=== PATIENT | female | born 1975 | race African-American/Black ===

== ENCOUNTER 2018-01-30 09:32 | Emergency (ER) | payer OTHER ==
[~2018-01-30] VITALS: Ht 170.2 cm; Wt 113.4 kg
[~2018-01-30 09:32] MED LIST: BENADRYL25 MG PO; CIPROFLOXACIN500 M2 ORAL; CYCLOBENZAPRINE10 MG ORAL; FLOMAX0.4 MG ORAL; NKM; NORCO 5-325 TA1 EACH ORAL; PREDNISONE20 MG ORAL; ZANTAC150 MG ORAL
[2018-01-30 09:50] VITALS: BP 122/85
--- NOTE | 2018-01-30 10:26 | Emergency Room Report ---
History of Present Illness General Chief Complaint: Back Pain-No Injury Source: Patient Present Illness HPI Patient is a 42-year-old female brought in by self after increased back pain. Patient reports having back pain for approximately one week. Patient reports having sharp pain to her low back. This did not radiate. Patient denies any recent trauma or heavy lifting. She denied bowel or bladder dysfunction. She denies being . Patient states that she had been having pain which radiated to her tailbone. She denies any weight loss or fevers. Patient had not been vomiting. She denies any recent change in the pain. She reports as having somewhat improved standing or lying down.The pain is sharp in nature.The pain did not radiate. Allergies: Coded Allergies: ASPIRIN (Verified Allergy, Severe, Hallucinations, 01/06/13) NSAIDS (NON-STEROIDAL ANTI-INFLAMMA (Verified Allergy, Intermediate, Hives , 01/06/13) Shrimp (Verified Allergy, Intermediate, Hives, 01/06/13) TRAMADOL (Verified Allergy, Unknown, 01/30/18) Patient History Last Menstrual Period: 01/18/18 Now: No : 3 Para: 1 Reviewed Nursing Documentation: PMH: Agreed; PSxH: Agreed Nursing Documentation-PMH Past Medical History: No Stated History Review of Systems All Other Systems: negative except mentioned in HPI Physical Exam Vital Signs Date Time Temp Pulse Resp B/P (MAP) Pulse Ox O2 Delivery O2 Flow Rate FiO2 01/30/18 09:41 98.3 95 20 122/85 98 Room Air 98.2 General Appearance: well appearing, no apparent distress, obese Head: normocephalic, atraumatic ENT: hearing grossly normal, normal voice Neck: full range of motion, supple Respiratory: no respiratory distress, speaking full sentences Cardiovascular #1: normal peripheral pulses, no edema, no JVD Gastrointestinal: normal inspection, soft Musculoskeletal: normal inspection, back normal, no calf tenderness, decreased range of mation Neurologic: alert, oriented x3, responsive, normal gait Psychiatric: mood/affect normal Skin: no rash Medical Decision Making Diagnostic Impression: Primary Impression: Low back pain ER Course This presented for back pain. Differential diagnosis included but was not limited to herniated disc, cauda equina syndrome, abdominal aortic aneurysm, perforated ulcer, spinal epidural abscess, spinal stenosis, lumbar fracture, metastatic lesion, pyelonephritis. Patient has a benign exam and does not appear to require any further imaging or laboratory testing at this time. Was given lidocaine patch as well as Tylenol. The patient is advised to follow up with primary care doctor in 1-2 days. Patient is advised that she may need MRI of pain persists. Patient is advised to return if any worsening condition or if any changes in status that are concerning. This report is dictated with [employer] dairy supplies sales representative software which may occasionally lead to discrepancies related to use of this software. Labs Test 01/30/18 10:05 Urine Color Yellow Urine Appearance Slightly cloudy Urine pH 6 (4.5-8.0) Urine Specific [place] 1.020 (1.005-1.035) Urine Protein Negative (NEGATIVE) Urine Glucose (UA) Negative (NEGATIVE) Urine Ketones Negative (NEGATIVE) Urine Occult Blood 1+ (NEGATIVE) Urine Nitrite Negative (NEGATIVE) Urine Bilirubin Negative (NEGATIVE) Urine Ictotest Negative Urine Urobilinogen 1 MG/DL (0.0-1.0) Urine Leukocyte Esterase Negative (NEGATIVE) Urine RBC 0-2 /HPF (0 - 2) Urine WBC 0-2 /HPF (0 - 2) Urine Squamous Epithelial Cells None /LPF (NONE/OCC) Urine Bacteria None /HPF (NONE) Urine HCG, Qualitative Negative (NEGATIVE) Last Vital Signs Date Time Temp Pulse Resp B/P (MAP) Pulse Ox O2 Delivery O2 Flow Rate FiO2 01/30/18 09:41 98.3 95 20 122/85 98 Room Air 98.2 Status: improved Scripts Acetaminophen* (ACETAMINOPHEN EXTRA STRENGTH*) 500 Mg Tablet 500 MG ORAL Q8H PRN for Fever/Headache/Mild Pain, #30 TAB Prov: Colton Messina MD 01/30/18 Lidocaine (Lidocaine) 1 Each Adh..patch 700 MG TP DAILY, #30 PATCH Prov: Colton Messina MD 01/30/18 Referrals: MUKESH MULLIGANREFERNNAMDI (PCP) Colton Messina MD Jan 30, 2018 10:26
[2018-01-30 10:27] LABS: APPEARANCE,URINE SLIGHTLY CLOUDY; BILIRUBIN, URINE NEGATIVE (NEGATIVE); GLUCOSE, URINE (UA) NEGATIVE (NEGATIVE); KETONES,URINE NEGATIVE (NEGATIVE); LEUKOCYTE ESTERASE ,URINE NEGATIVE (NEGATIVE); NITRITE,URINE NEGATIVE (NEGATIVE); PH,URINE 6 (4.5-8.0); PROTEIN,URINE NEGATIVE (NEGATIVE); UROBILINOGEN,URINE 1 MG/DL (0.0-1.0)
[2018-01-30] MEDS ORDERED: LIDOCAINE700 M1 TP (10:27)
[2018-01-30] MEDS ORDERED: ACETAMINOPHEN500 M3 ORAL (10:27)
[2018-01-30] MEDS ORDERED: Acetaminophen 500mg (ES) tab ORAL ONE (10:30)
[2018-01-30 10:43] LABS: COLOR,URINE YELLOW
[2018-01-30 10:50] VITALS: BP 122/85
== END 2018-01-30 10:50 | disposition home or self-care (01) ==
LOC: EMR 09:53
DX: M54.5 Low back pain (principal); Z88.6 Allergy status to analgesic agent; Z91.013 Allergy to seafood
CPT/HCPCS: 81003; 81025; 99284

== ENCOUNTER 2020-01-26 15:06 | Emergency (ER) | payer OTHER ==
[~2020-01-26] VITALS: Ht 170.2 cm; Wt 115.2 kg
[~2020-01-26 15:06] MED LIST changes: +ACETAMINOPHEN500 M3 ORAL; +LIDOCAINE700 M1 TP; +NITROFURANTOIN100 M2 ORAL
[2020-01-26 15:22] VITALS: BP 120/86
--- NOTE | 2020-01-26 15:40 | Emergency Room Report ---
History of Present Illness General Chief Complaint: Female Urogenital Problems Source: Patient Present Illness HPI 44-year-old female presents to the emergency department complaining of 8 out of 10 severity progressive right sided flank pain x1 day. Patient reports she was seen by her BIOCHEMISTRY TEACHER yesterday and was prescribed antibiotics. Patient reports she was on her way to fill prescription however pain is so intense that she came to the ER instead. Patient denies nausea, vomiting, fevers or chills. Patient denies blood in the urine or dysuria. Patient denies midline spinal pain. Patient reports history of stones in the past. She denies any other symptoms at this time. She denies or suspicion of . She reports she just received Depo Shot yesterday. Allergies: Coded Allergies: ASPIRIN (Verified Allergy, Severe, Hallucinations, 01/06/13) NSAIDS (NON-STEROIDAL ANTI-INFLAMMA (Verified Allergy, Intermediate, Hives , 01/06/13) Shrimp (Verified Allergy, Intermediate, Hives, 01/06/13) TRAMADOL (Verified Allergy, Unknown, 01/30/18) COVID-19 Screening Contact w/high risk pt: No Recent Travel to affected area: No Experienced COVID-19 symptoms?: No COVID-19 Testing performed OVEN ATTENDANT: No Patient History Past Medical History: see triage record Past Surgical History: none Pertinent Family History: none Last Menstrual Period: now Now: No Reviewed Nursing Documentation: PMH: Agreed; PSxH: Agreed Nursing Documentation-PMH Past Medical History: No History, Except For Review of Systems All Other Systems: negative except mentioned in HPI Physical Exam Vital Signs Date Time Temp Pulse Resp B/P (MAP) Pulse Ox O2 Delivery O2 Flow Rate FiO2 01/26/20 15:08 99.7 96 18 120/86 (97) 99 Room Air Sp02 EP Interpretation: reviewed, normal General Appearance: no apparent distress, alert, GCS 15, non-toxic Head: normocephalic, atraumatic Eyes: bilateral eye normal inspection, bilateral eye PERRL ENT: hearing grossly normal, normal voice Neck: full range of motion Respiratory: lungs clear, normal breath sounds, speaking full sentences Cardiovascular #1: regular rate, rhythm, no edema Gastrointestinal: normal bowel sounds, non tender, soft, non-distended, no guarding Rectal: deferred Genitourinary: normal inspection, no CVA tenderness Musculoskeletal: back normal, normal range of motion, gait/station normal, non- tender Neurologic: alert, motor strength/tone normal, oriented x3, sensory intact, responsive, speech normal Psychiatric: judgement/insight normal Medical Decision Making PA Attestation Dr. Messina is my supervising Physician whom patient management has been discussed with. Diagnostic Impression: Primary Impression: Urinary tract infection Qualified Codes: N30.01 - Acute cystitis with hematuria ER Course 44-year-old female presents to the emergency department complaining of 8 out of 10 severity progressive right sided flank pain x1 day. Patient reports she was seen by her BIOCHEMISTRY TEACHER yesterday and was prescribed antibiotics. Patient reports she was on her way to fill prescription however pain is so intense that she came to the ER instead. Patient denies nausea, vomiting, fevers or chills. Patient denies blood in the urine or dysuria. Patient denies midline spinal pain. Patient reports history of stones in the past. She denies any other symptoms at this time. She denies or suspicion of . She reports she just received Depo Shot yesterday. Ddx considered but are not limited to Diverticulitis, acute appy, diarrhea,UC, PUD, GE, pancreatitis, gallstone, kidney stone, pyelonephritis, UTI, obstruction. Vital signs: are WNL, pt. is afebrile H&PE are most consistent with Possible renal calculi w. UTI ORDERS: -CBC: Unremarkable - CMP: normal renal function - UA: Nitrite positive== UTI -Hcg: Negative - CT abdomen and pelvis no contrast: see results below ED INTERVENTIONS: -- 1000NS --4mg Morphine for pain -Benadryl 50mg PO -- D/w pt. CT results. D/w pt. will give dose of abx here. initially was going to switch to Macrobid. reviewed CT w. attending physician- some mild perinephritic stranding noted, decision was made to have pt. take antibiotic that was originally rx'd to her by her INSULATION BOARD CALENDER OPERATOR for [facility] as this abx is superior for suspected pyelonephritis. DISCHARGE: At this time pt. is stable for d/c to home. Will provide printed patient care instructions, and any necessary prescriptions. Care plan and follow up instructions have been discussed with the patient prior to discharge. Labs Test 01/26/20 15:15 01/26/20 15:30 Urine Color Pale yellow Urine Appearance Cloudy Urine pH 7 (4.5-8.0) Urine Specific [place] 1.010 (1.005-1.035) Urine Protein 1+ (NEGATIVE) Urine Glucose (UA) Negative (NEGATIVE) Urine Ketones Negative (NEGATIVE) Urine Blood 2+ (NEGATIVE) Urine Nitrite Positive (NEGATIVE) Urine Bilirubin Negative (NEGATIVE) Urine Urobilinogen Normal MG/DL (0.0-1.0) Urine Leukocyte Esterase 2+ (NEGATIVE) Urine HCG, Qualitative Negative (NEGATIVE) White Blood Count 9.4 K/UL (4.8-10.8) Red Blood Count 5.01 M/UL (4.20-5.40) Hemoglobin 11.8 G/DL (12.0-16.0) Hematocrit 39.0 % (37.0-47.0) Mean Corpuscular Volume 78 FL (80-99) Mean Corpuscular Hemoglobin 23.6 PG (27.0-31.0) Mean Corpuscular Hemoglobin Concent 30.4 G/DL (32.0-36.0) Red Cell Distribution Width 17.5 % (11.6-14.8) Platelet Count 344 K/UL (150-450) Mean Platelet Volume 5.5 FL (6.5-10.1) Neutrophils (%) (Auto) 65.2 % (45.0-75.0) Lymphocytes (%) (Auto) 27.6 % (20.0-45.0) Monocytes (%) (Auto) 3.5 % (1.0-10.0) Eosinophils (%) (Auto) 2.4 % (0.0-3.0) Basophils (%) (Auto) 1.3 % (0.0-2.0) Sodium Level 139 MMOL/L (136-145) Potassium Level 3.8 MMOL/L (3.5-5.1) Chloride Level 105 MMOL/L (98-107) Carbon Dioxide Level 24 MMOL/L (21-32) Anion Gap 10 mmol/L (5-15) Blood Urea Nitrogen 10 mg/dL (7-18) Creatinine 1.0 MG/DL (0.55-1.30) Estimat Glomerular Filtration Rate > 60 mL/min (>60) Glucose Level 88 MG/DL (74-106) Calcium Level 8.6 MG/DL (8.5-10.1) Total Bilirubin 0.6 MG/DL (0.2-1.0) Aspartate Amino Transf (AST/SGOT) 17 U/L (15-37) Alanine Aminotransferase (ALT/SGPT) 13 U/L (12-78) Alkaline Phosphatase 77 U/L (46-116) Total Protein 7.5 G/DL (6.4-8.2) Albumin 3.6 G/DL (3.4-5.0) Globulin 3.9 g/dL Albumin/Globulin Ratio 0.9 (1.0-2.7) Lipase 130 U/L (73-393) CT/MRI/US Diagnostic Results CT/MRI/US Diagnostic Results : Imaging Test Ordered: CT Abdomen and Pelvis Impression "IMPRESSION: TINY PUNCTATE RIGHT UPPER POLE INTRARENAL STONE. NO HYDRONEPHROSIS. MILD PERIURETERIC INDURATION AROUND THE PROXIMAL RIGHT URETER. QUESTION URINARY TRACT INFECTION OR RECENTLY PASSED STONE. SLIGHTLY BULKY UTERUS BUT UNCHANGED SINCE 2012. SMALL FATTY UMBILICAL HERNIA." Per official radiology report- Please see report for specific details. Last Vital Signs Date Time Temp Pulse Resp B/P (MAP) Pulse Ox O2 Delivery O2 Flow Rate FiO2 01/26/20 15:22 99.7 79 18 120/86 99 Room Air Disposition: HOME, SELF-CARE Condition: Stable Referrals: NON PHYSICIAN (PCP) Patient Instructions: Urinary Tract Infection Additional Instructions: Take your previously prescribed medications as directed. Follow up with your Primary Care Provider/ INSULATION BOARD CALENDER OPERATOR in 3-5 days, even if your symptoms have resolved. Return sooner to ED if new symptoms occur, or current symptoms become worse. - Please note that this Emergency Department Report was dictated using [employer] manager technology software, occasionally this can lead to erroneous entry secondary to interpretation by the dictation equipment. Soha Linn Jan 26, 2020 15:39
[2020-01-26] MEDS ORDERED: Morphine Sulfate 4mg/ml Inj (IV USE ONLY) IVP ONE (15:45)
--- NOTE | 2020-01-26 16:04 | Diagnostic Imaging Report ---
EXAM: CT CT Abdomen Pelvis WO Contrast INDICATION: Severe right flank pain. COMPARISON: None TECHNIQUE: Axial images were obtained through the abdomen pelvis without intravenous contrast. Sagittal and coronal reformats are generated. All CT scans at this facility are performed using dose modulation techniques as appropriate to a performed exam including the following: automated exposure control with adjustment of the mA and/or kV according to patient size. RADIATION DOSE: CTDIvol: 13.5 mGy DLP: 697.6 mGy-cm Dose information generated by the CT scanner is available in PACS. FINDINGS: The lung bases are clear. The liver and spleen are homogeneous. Gallbladder is without sludge or stone and there is no wall thickening. The pancreas is unremarkable. Adrenals are normal in morphology. Tiny punctate intrarenal stone noted upper pole right kidney. No hydronephrosis demonstrated but there is slight induration noted around the proximal right ureter. Question whether this may be secondary inflammation from urinary tract infection or recently passed stone.. Small bowel loops are nondistended. The colon is also nondistended with average amount of stool. The appendix is normal. There is a somewhat bulky uterus but this is unchanged compared to prior exam from 2013. There is no free fluid or free air. No pathologic adenopathy demonstrated. Urinary bladder appears unremarkable. There is a small fatty umbilical hernia. Mild degenerative changes of the spine noted. IMPRESSION: TINY PUNCTATE RIGHT UPPER POLE INTRARENAL STONE. NO HYDRONEPHROSIS. MILD PERIURETERIC INDURATION AROUND THE PROXIMAL RIGHT URETER. QUESTION URINARY TRACT INFECTION OR RECENTLY PASSED STONE. SLIGHTLY BULKY UTERUS BUT UNCHANGED SINCE 2013. SMALL FATTY UMBILICAL HERNIA.
[2020-01-26 16:18] LABS: APPEARANCE,URINE CLOUDY; BILIRUBIN, URINE NEGATIVE (NEGATIVE); COLOR,URINE PALE YELLOW; GLUCOSE, URINE (UA) NEGATIVE (NEGATIVE); KETONES,URINE NEGATIVE (NEGATIVE); LEUKOCYTE ESTERASE ,URINE 2+ (NEGATIVE); NITRITE,URINE POSITIVE (NEGATIVE); PH,URINE 7 (4.5-8.0); PROTEIN,URINE 1+ (NEGATIVE); UROBILINOGEN,URINE NORMAL MG/DL (0.0-1.0)
[2020-01-26 16:23] LABS: ANION GAP 10 mmol/L (5-15); BASOPHILS % (AUTO) 1.3 % (0.0-2.0); BLOOD UREA NITROGEN 10 mg/dL (7-18); CALCIUM 8.6 MG/DL (8.5-10.1); CARBON DIOXIDE 24 MMOL/L (21-32); CHLORIDE 105 MMOL/L (98-107); EOSINOPHILS % (AUTO) 2.4 % (0.0-3.0); HEMOGLOBIN 11.8 G/DL (12.0-16.0); LYMPHOCYTES % (AUTO) 27.6 % (20.0-45.0); MEAN CORPUSCULAR VOLUME 78 FL (80-99); MONOCYTES % (AUTO) 3.5 % (1.0-10.0); NEUTROPHILS % (AUTO) 65.2 % (45.0-75.0); PLATELET COUNT 344 K/UL (150-450); POTASSIUM 3.8 MMOL/L (3.5-5.1); RED BLOOD COUNT 5.01 M/UL (4.20-5.40); RED CELL DISTRIBUTION WIDTH 17.5 % (11.6-14.8); SODIUM 139 MMOL/L (136-145); WHITE BLOOD COUNT 9.4 K/UL (4.8-10.8)
[2020-01-26 16:28] LABS: ALANINE AMINOTRANSFERASE 13 U/L (12-78); ALBUMIN 3.6 G/DL (3.4-5.0); ALBUMIN/GLOBULIN RATIO 0.9 (1.0-2.7); ALKALINE PHOSPHATASE 77 U/L (46-116); ASPARTATE AMINO TRANSFERASE 17 U/L (15-37); BILIRUBIN,TOTAL 0.6 MG/DL (0.2-1.0)
[2020-01-26] MEDS ORDERED: NITROFURANTOIN100 M2 ORAL ×2 (16:58)
[2020-01-26 17:07] VITALS: BP 115/81
== END 2020-01-26 17:07 | disposition home or self-care (01) ==
LOC: EMR 15:23
DX: N30.01 Acute cystitis with hematuria (principal); Z88.6 Allergy status to analgesic agent; Z91.013 Allergy to seafood; K42.9 Umbilical hernia without obstruction or gangrene
CPT/HCPCS: 36415; 74176; 80053; 81003; 81025; 83690; 85025; 87086; 87181; 96361; 96374; 99284; J2270; J7030

== ENCOUNTER 2020-05-22 07:58 | Emergency (ER) | payer OTHER ==
[~2020-05-22] VITALS: Ht 170.2 cm; Wt 113.4 kg
--- NOTE | 2020-05-22 08:22 | NUR ---
ED Nurse Note: Pt walked in from home c/o bilateral heel pain that started yesterday after running. Pt denies fall/injury. Respirations even and unlabored on room air. Vitals stable as documented. A+Ox4, speaking in complete sentences.
--- NOTE | 2020-05-22 08:22 | Emergency Room Report ---
History of Present Illness General Chief Complaint: Lower Extremity Injury Source: Patient Present Illness HPI Patient is a 44-year-old female past medical history of obesity who presents to the ER complaining of bilateral medial ankle pain and heel pain since yesterday. Patient states that she went running for the first time since she can remember and afterwards had onset of pain. She denies any specific trauma. She denies any focal weakness. She states that she is able to ambulate without difficulty but that she is in pain. Patient states that she is allergic to NSAIDs and aspirin but can take 600 mg of Motrin. She has not tried any medications at home. She denies any fever or chills. Allergies: Coded Allergies: ASPIRIN (Verified Allergy, Severe, Hallucinations, 01/06/13) NSAIDS (NON-STEROIDAL ANTI-INFLAMMA (Verified Allergy, Intermediate, Hives, 01/06/13) Shrimp (Verified Allergy, Intermediate, Hives, 01/06/13) TRAMADOL (Verified Allergy, Unknown, 01/30/18) COVID-19 Screening Contact w/high risk pt: No Recent Travel to affected area: No Experienced COVID-19 symptoms?: No COVID-19 Testing performed TREE SHEAR OPERATOR: No Patient History Now: No Reviewed Nursing Documentation: PMH: Agreed; PSxH: Agreed Review of Systems All Other Systems: negative except mentioned in HPI Physical Exam Vital Signs Date Time Temp Pulse Resp B/P (MAP) Pulse Ox O2 Delivery O2 Flow Rate FiO2 05/22/20 08:08 98.4 73 19 115/78 (90) 98 Room Air Sp02 EP Interpretation: reviewed, normal General Appearance: no apparent distress, alert, GCS 15, non-toxic Head: normocephalic, atraumatic Eyes: bilateral eye normal inspection, bilateral eye PERRL ENT: hearing grossly normal, normal pharynx, no angioedema, normal voice Neck: full range of motion, supple/symm/no masses Respiratory: chest non-tender, lungs clear, normal breath sounds, speaking full sentences Cardiovascular #1: regular rate, rhythm, no edema Cardiovascular #2: 2+ carotid (R), 2+ carotid (L), 2+ radial (R), 2+ radial (L), 2+ dorsalis pedis (R), 2+ dorsalis pedis (L) Gastrointestinal: normal bowel sounds, non tender, soft, non-distended, no guarding, no rebound, overweight Rectal: deferred Musculoskeletal: normal range of motion, other - No lower extremity edema or erythema, normal strength and sensation, bilateral calcaneal mild tenderness to palpation and tenderness to palpation bilaterally distal to the medial malleolus patient ambulating without difficulty. She is able to push and pull her feet with equal strength Neurologic: movie extra III-XII nml as tested, oriented x3 Psychiatric: no suicidal/homicidal ideation Skin: no rash Lymphatic: no adenopathy Medical Decision Making Diagnostic Impression: Primary Impression: Ankle sprain Additional Impression: Heel spur ER Course Patient given Motrin. Patient able to ambulate without difficulty. No evidence of Achilles tendon rupture. X-rays demonstrate no significant acute abnormalities. After discussing risks and benefits of further diagnostics, treatment plans, as well as indications for and risks of admission, the patient is agreeable to being discharged home. I have explained that their evaluation and treatment in the emergency department today is an important step towards them achieving better health but that their evaluation today is not intended to replace further evaluation and treatment by a physician in their local clinic. I have explained that while the current findings suggest no immediate life threatening emergency they will require further evaluation and treatment by a physician of their choice in their area. They understand that it will be necessary for them to review the final reports of their ED visit with their clinic physician. We have reviewed indications for return to the Emergency Department. I have explained that additional time may need to pass and/or additional testing as an outpatient may be necessary before a definitive diagno sis can be made. They tell me they are willing to follow up as instructed within the timeframe I recommend. They appear to understand what we discussed. Additionally they understand that if they are unable to be seen by an outpatient physician they are welcome, and in fact should, return to the Emergency Department for a repeat evaluation. The patient is stable at time of discharge. Other X-Ray Diagnostic Results Other X-Ray Diagnostic Results #1: X-Ray ordered: Ankle L # of Views/Limited Vs Complete: 3 View Indication: Pain EP Interpretation: Yes Interpretation: no dislocation, no soft tissue swelling, no fractures Impression: No acute disease Electronically Signed by: Latonia Blanco MD Other X-Ray Diagnostic Results #2: X-Ray ordered: Ankle right # of Views/Limited Vs Complete: 3 View Indication: Pain EP Interpretation: Yes Interpretation: no dislocation, no soft tissue swelling, no fractures Impression: No acute disease Electronically Signed by: Latonia Blanco MD Other X-Ray Diagnostic Results #3: X-Ray ordered: Left calcaneus # of Views/Limited Vs Complete: 2 View Indication: Pain EP Interpretation: Yes Interpretation: no dislocation, no soft tissue swelling, no fractures Impression: No acute disease Electronically Signed by: Latonia Blanco MD Other X-Ray Diagnostic Results #4: X-Ray ordered: Right calcaneus # of Views/Limited Vs Complete: 2 View Indication: Pain EP Interpretation: Yes Interpretation: no dislocation, no soft tissue swelling, no fractures Impression: No acute disease Electronically Signed by: Latonia Blanco MD Last Vital Signs Date Time Temp Pulse Resp B/P (MAP) Pulse Ox O2 Delivery O2 Flow Rate FiO2 05/22/20 08:08 98.4 73 19 115/78 (90) 98 Room Air Disposition: HOME, SELF-CARE Condition: Stable Scripts Ibuprofen* (MOTRIN*) 600 Mg Tablet 600 MG ORAL FOUR TIMES A DAY, #30 TAB 0 Refills Prov: Latonia Blanco M.D. 05/22/20 Referrals: YAMILETH MARIANO (PCP) Additional Instructions: The patient was provided with discharge instructions, notified to follow-up with a primary care doctor and or specialist in the next 24-48 hours, and to return to the ED if they have worsening of their symptoms. Please note that this report is being documented using [employer] technology. This can lead to erroneous entry secondary to incorrect interpretation by the dictating instrument. Latonia Blanco M.D. May 22, 2020 08:22
[2020-05-22] MEDS ORDERED: IBUPROFEN600 M1 ORAL (09:05)
[2020-05-22 09:09] VITALS: BP 121/74
--- NOTE | 2020-05-22 09:09 | NUR ---
ER DISCHARGE NOTE: Patient is cleared to be discharged per ERMD, pt is aox4, on room air, with stable vital signs. pt was given dc and prescription instructions, pt was able to verbalize understanding, pt id band removed without complications. pt is able to ambulate with steady gait. pt took all belongings.
--- NOTE | 2020-05-23 06:19 | Diagnostic Imaging Report ---
ADDENDUM - Added by Jason Mathew MD on 05/22/2020 9:00 AM (-04:00) Right ankle radiographs: No acute fracture or dislocation. The ankle mortise is symmetric. Generalized soft tissue swelling. EXAM: XR Right Ankle Complete, 3 or More Views CLINICAL HISTORY: TRAUMA TECHNIQUE: Frontal, lateral and oblique views of the right calcaneus. COMPARISON: No relevant prior studies available. FINDINGS/IMPRESSION: No calcaneal fracture. Intact anterior process of the calcaneus. Intact base of the fifth metatarsal and base of the cuboid. 5 mm plantar calcaneal enthesophyte (heel spur). Enthesopathic ossification of the distal Achilles. <MYCVCSECTION> Communications: 05/22/20 09:11 Verify Receipt Verified receipt with Marilee, given to Earl RIVERA on 05/22 09:11 (-07:00)
--- NOTE | 2020-05-23 06:19 | Diagnostic Imaging Report ---
ADDENDUM - Added by Jason Mathew MD on 05/22/2020 9:01 AM (-04:00) Left ankle rated graphs: No acute fracture or dislocation. The ankle mortise is intact. Generalized soft tissue swelling/prominence. EXAM: XR Left Ankle Complete, 3 or More Views CLINICAL HISTORY: TRAUMA TECHNIQUE: Frontal, lateral and oblique views of the left calcaneus. COMPARISON: No relevant prior studies available FINDINGS/IMPRESSION: No calcaneal fracture. Intact anterior process of the calcaneus. Intact base of the fifth metatarsal and base of the cuboid. 6 mm plantar calcaneal enthesophyte (heel spur). Enthesopathic ossification of the distal Achilles.
--- NOTE | 2020-05-23 06:19 | Diagnostic Imaging Report ---
EXAM: XR Right Calcaneus, 2 or More Views CLINICAL HISTORY: PAIN TECHNIQUE: Lateral and plantar views of the right calcaneus. COMPARISON: No relevant prior studies available. FINDINGS/IMPRESSION: No calcaneal fracture. Intact anterior process of the calcaneus. Intact base of the fifth metatarsal and base of the cuboid. 5 mm plantar calcaneal enthesophyte (heel spur). Enthesopathic ossification of the distal Achilles.
--- NOTE | 2020-05-23 06:19 | Diagnostic Imaging Report ---
EXAM: XR Left Calcaneus, 2 or More Views CLINICAL HISTORY: PAIN TECHNIQUE: Lateral and plantar views of the left calcaneus. COMPARISON: No relevant prior studies available. FINDINGS/IMPRESSION: No calcaneal fracture. Intact anterior process of the calcaneus. Intact base of the fifth metatarsal and base of the cuboid. 6 mm plantar calcaneal enthesophyte (heel spur). Enthesopathic ossification of the distal Achilles.
== END 2020-05-22 09:09 | disposition home or self-care (01) ==
LOC: EMR 08:12
DX: S93.409A Sprain of unspecified ligament of unspecified ankle, initial encounter (principal); X58.XXXA Exposure to other specified factors, initial encounter; M77.9 Enthesopathy, unspecified; Y93.02 Activity, running; Z88.6 Allergy status to analgesic agent; Z91.013 Allergy to seafood
CPT/HCPCS: 99284